=== PATIENT | female | born 1950 | race Caucasian/White ===

== ENCOUNTER 2024-11-07 13:53 | Outpatient (CLI) | payer MEDICARE, SELFPAY ==
[2024-11-07 14:55] LABS: Alanine Aminotransferase 23 U/L (12-78); Albumin Level 4.4 g/dl (3.5-5.0); Albumin/Globulin Ratio 1.8 (1.1-1.8); Alkaline Phosphatase 107 U/L (38-126); Aspartate Amino Transferase 31 U/L (14-36); Blood Urea Nitrogen 14 mg/dl (7-17); Calcium 9.3 mg/dl (8.4-10.2); Carbon Dioxide 27 mmol/L (22.0-30.0); Chloride 102 mmol/L (98-107); Estimated Glomerular Filt Rate 82 ml/min (>60); GFR (African American) 99 ML/MIN (>60); Globulin 2.4 g/dL (1.3-3.2); Glucose 86 mg/dl (74-100); Sodium 137 mmol/L (136-145); Total Protein,Serum 6.8 g/dl (6.3-8.2)
[2024-11-07 15:26] LABS: Thyroid Stimulating Hormone 2.41 uIU/mL (0.465-4.68)
[2024-11-07 15:45] LABS: Vitamin B12 573 pg/mL (239-931)
[2024-11-07 16:35] LABS: Iron 123 ug/dL (37-170)
[2024-11-07 16:45] LABS: Total Iron Binding Capacity 308 ug/dL (265-497)
[2024-11-07 17:11] LABS: Ferritin 31.2 ng/ml (11.1-264)
[2024-11-12 02:10] LABS: 1,25 Dihydroxy Vitamin D 39 pg/mL (.); 1,25-Dihydroxy, Vitamin D-2 <10 pg/mL (.); 1,25-Dihydroxy, Vitamin D-3 36 pg/mL (.)
== END 2024-11-07 23:59 | disposition home or self-care (01) ==
LOC: LAB 13:54
PROVIDERS: PCP Family Medicine; Visit Provider Internal Medicine Gastroenterology
DX: K30 Functional dyspepsia (principal); K21.9 Gastro-esophageal reflux disease without esophagitis; Z86.0101 Personal history of adenomatous and serrated colon polyps; I10 Essential (primary) hypertension
CPT/HCPCS: 36415; 80053; 82607; 82652; 82728; 83540; 83550; 84443